=== PATIENT | female | born 1980 | race Caucasian/White ===

== ENCOUNTER 2016-09-25 14:36 | Emergency (ER) | payer OTHER ==
[~2016-09-25] VITALS: Ht 167.6 cm; Wt 63.1 kg
[2016-09-25 14:39] VITALS: TEMP 36.8; Ht 167.6 cm; Wt 63.1 kg
[2016-09-25] MEDS ORDERED: DEXAMETHASONE SOD INJ 10 MG/ML VIAL IM ONE (15:15)
[2016-09-25] MEDS ORDERED: METH4PAK PO (15:17)
--- NOTE | 2016-09-25 15:20 | EMERGENCY ROOM VISIT NOTE ---
ED Visit Note First contact with patient: 14:44 CHIEF COMPLAINT: Rash HISTORY OF PRESENT ILLNESS: This 36-year-old female patient presents to the emergency department ambulatory complaining of a rash on the arms and legs which started a few weeks ago. The patient states that she has been outside pulling weeds recently. The patient denies fever, chills, nausea, or loss of appetite. They deny any URI symptoms. The patient has tried nothing. The patient states the rash is itchy and rates the discomfort as 0/10. No change in food, soap, detergents, or other environmental factors. No new medications. No weakness or numbness. REVIEW OF SYSTEMS: A 6 system review of systems was completed with positives and pertinent negatives listed in the HPI. ALLERGIES: No known drug allergies MEDICATIONS: Patient denies PMH: Patient denies SOCIAL HISTORY: The patient lives locally. She does not smoke PHYSICAL EXAM: Vital Signs: Reviewed Nurse's notes, vital signs stable. GENERAL : This is a 36-year-old female, in no acute distress, well-developed, well- nourished. SKIN: There are several blotchy, erythematous, papular areas to the upper and lower extremities that are consistent with wheals. Capillary refill less than 2 seconds. EMERGENCY DEPARTMENT COURSE: The patient presents to the emergency department with signs and symptoms suggestive of contact dermatitis and urticaria. I do not suspect scabies. She is afebrile. I do not suspect cellulitis. The patient was given 10 mg IM Decadron and will be given a Medrol Dosepak. She should try Zyrtec. She should return to the ER with any worsening symptoms. Otherwise, she should see her family doctor next week. Current/Historical Medications Scheduled Methylprednisolone (Medrol Dosepak), 1 PKT PO UD Allergies Coded Allergies: No Known Allergies (Unverified , 09/25/16) Vital Signs Date Time Temp Pulse Resp B/P (MAP) Pulse Ox O2 Delivery O2 Flow Rate FiO2 09/25/16 15:49 78 18 132/78 98 09/25/16 14:39 36.8 64 18 118/82 100 Room Air Medications Administered Medications (Trade) Dose Ordered Sig/Laureano Route Start Time Stop Time Status Last Admin Dose Admin Dexamethasone Sodium Phosphate (Decadron Inj) 10 mg NOW ONCE IM 09/25/16 15:15 09/25/16 15:16 DC 6/14/17 15:17 10 MG Departure Information Impression Primary Impression: Contact dermatitis Dispostion Home / Self-Care Condition GOOD Prescriptions Methylprednisolone (MEDROL DOSEPAK) 4 Mg Kilo 1 PKT PO UD, #1 PKT Prov: Aicha Leija PA-C 09/25/16 Referrals Kathy Blanton PA-C (PCP) Patient Instructions Contact Dermatitis, My [facility] Additional Instructions Try Zyrtec according to package instructions for itching Prednisone as prescribed, until finished Return with any worsening symptoms Otherwise, follow-up with your family doctor for further evaluation and management. Problem Qualifiers Primary Impression: Contact dermatitis
[2016-09-25 15:49] VITALS: BP 132/78; PULSE 78; O2SAT 98
== END 2016-09-25 15:51 | disposition home or self-care (01) ==
LOC: C.EDB 14:38 → C.EDD 15:51
DX: L25.9 Unspecified contact dermatitis, unspecified cause (principal)